=== PATIENT | female | born 1995 | race Two or more races ===

== ENCOUNTER 2016-07-03 17:30 | Observation (INO) | payer MEDICAID | END 2016-07-03 18:50 | disposition home or self-care (01) | DRG 566 | LOC: LDRP 17:30 | PROVIDERS: ADMIT Specialist; ATTEND Specialist | DX: O26.893 Other specified pregnancy related conditions, third trimester (principal); R10.2 Pelvic and perineal pain; R10.30 Lower abdominal pain, unspecified; O99.013 Anemia complicating pregnancy, third trimester; Z3A.35 35 weeks gestation of pregnancy; Z87.891 Personal history of nicotine dependence | CPT/HCPCS: 59025; 81002; G0378 ==

== ENCOUNTER 2017-12-24 14:48 | Emergency (ER) | payer MEDICAID ==
[~2017-12-24] VITALS: Ht 160 cm; Wt 45.8 kg
[2017-12-24] MEDS ORDERED: IBUPROFEN 600 MG TAB PO ONE (16:15)
[2017-12-24 16:31] VITALS: BP 128/74
== END 2017-12-24 16:15 | disposition home or self-care (01) ==
LOC: ER 14:48
DX: L03.011 Cellulitis of right finger (principal)
CPT/HCPCS: 10060; 87205

== ENCOUNTER 2018-08-06 19:20 | Emergency (ER) | payer MEDICAID ==
[~2018-08-06] VITALS: Ht 160 cm; Wt 51.7 kg
[2018-08-06 20:05] VITALS: BP 106/63
[2018-08-06 22:38] LABS: Urine Bacteria FEW /hpf (None Seen); Urine Blood 1+ /uL (Negative); Urine Mucus FEW (None Seen); Urine Specific Gravity 1.025 (1.001-1.035); Urine WBC 418 /hpf (0 - 5)
== END 2018-08-06 22:22 | disposition left against medical advice (07) ==
LOC: ER 19:21
DX: O26.892 Other specified pregnancy related conditions, second trimester (principal); R10.9 Unspecified abdominal pain; Z3A.17 17 weeks gestation of pregnancy; Z53.21 Procedure and treatment not carried out due to patient leaving prior to being seen by health care provider
CPT/HCPCS: 81001